=== PATIENT | female | born 1980 | race Caucasian/White ===

== ENCOUNTER 2024-06-09 00:26 | Emergency (ER) | payer MEDICAID, OTHER ==
[~2024-06-09] VITALS: Ht 167.6 cm; Wt 61.0 kg
[2024-06-09 00:41] VITALS: TEMP 37.2; O2SAT 98
[2024-06-09 01:23] VITALS: BP 132/76; PULSE 83; RESP 16; O2SAT 99
[2024-06-09] MEDS: CYCLOBENZAPRINE 10MG TABLET PO ONE (03:19)
[2024-06-09] MEDS: KETOROLAC 30MG/ML VIAL IM ONE (03:19)
[2024-06-09] MEDS: LIDOCAINE 5% PATCH TOP SCH (03:19)
[2024-06-09] MEDS ORDERED: LIDO700A15 TP (04:03)
[2024-06-09] MEDS ORDERED: KETO10TA2 MT (04:03)
[2024-06-09] MEDS ORDERED: CYCL10TA21 MT (04:03)
== END 2024-06-09 04:32 | disposition home or self-care (01) ==
LOC: ER 00:26
DX: M54.50 Low back pain, unspecified (principal); M54.2 Cervicalgia; E11.9 Type 2 diabetes mellitus without complications; Z79.899 Other long term (current) drug therapy; V89.2XXA Person injured in unspecified motor-vehicle accident, traffic, initial encounter; Y93.89 Activity, other specified; Y92.89 Other specified places as the place of occurrence of the external cause; Y99.8 Other external cause status
CPT/HCPCS: 99283; 96372; J1885